=== PATIENT | male | born 1965 | race Caucasian/White ===

== ENCOUNTER → 2020-12-22 | Outpatient (CLI) | payer BC ==
[~2020-12-22] MED LIST: ALPR0.5T6 PO; BUSP15TA PO; GABA800T5 PO
== END ==
LOC: LAB 07:50
PROVIDERS: ATTEND Nurse Anesthetist, Certified Registered
DX: Z01.812 Encounter for preprocedural laboratory examination (principal); Z86.010 Personal history of colon polyps; Z20.822 Contact with and (suspected) exposure to COVID-19
CPT/HCPCS: U0003; U0005

== ENCOUNTER → 2020-12-26 | Day surgery (SDC) | payer BC ==
[~2020-12-26] MED LIST changes: +IPRATRPIUM/ALBUTEROL 0.5/2.5MG 3 ML NEBU. NEB PRN; +LIDOCAINE 2% PF 5 ML VIAL. ONE; +MIDAZOLAM HCL PF 2 MG/2 ML VIAL. IV ONE; +ONDANSETRON PF 4 MG/2 ML VIAL. IV PRN; +PROPOFOL 10,000 MCG/ML (20ML) VIAL IV ONE
[2020-12-26] MEDS: IV RINGERS SOLUTION,LACTATED 1,000 ML IV SCH (08:28)
[2020-12-26 10:04] VITALS: BP 107/74
--- NOTE | 2020-12-28 15:10 | PATHOLOGY ---
[facility] Accession Number: [id number] . 01 Material submitted: . hepatic flexure - HEPATIC FLEXURE POLYP X2. Modifiers: X2 . 01 Clinical history: . SCREENING,HISTORY OF POLYPS COLONOSCOPY . 02 Diagnosis: Colon biopsies, hepatic flexure polyp x2: - Tubular adenomas. (JPM:brinda; 12/28/2020) S 12/28/2020 0933 Local . 02 Comment: There is no high grade dysplasia or evidence of malignancy. (JPM:brinda; 12/28/2020) . 02 Electronically signed: . Anthony Ann MD, Pathologist NPI- [id number] . 01 Gross description: . The specimen is received in formalin, labeled "Joe Bills, hepatic flexure polyp x2". Received are four segments of pale avila tissue ranging in size from 0.2-0.3 cm in maximum dimensions. The specimen is submitted entirely in cassette A1. ([facility]; 12/27/2020) QA/QA 12/27/2020 1619 Local . 02 Pathologist provided ICD-10: D12.3 . 02 CPT . 298153 Specimen Comment: A courtesy copy of this report has been sent to [phone] Specimen Comment: Report sent to / DR GRIFFITHS Performed at: 01 [facility] [address] [facility] [facility] [address], [place] [id number] MD Cole Biggs MD Phone: [phone] Performed at: 02 [facility] [address] [place], [place] [id number] MD Anthony Ann MD Phone: [phone]
== END | disposition home or self-care (01) ==
LOC: SURG 08:10
PROVIDERS: ATTEND Internal Medicine Gastroenterology
DX: Z12.11 Encounter for screening for malignant neoplasm of colon (principal); D12.3 Benign neoplasm of transverse colon; K64.8 Other hemorrhoids; K57.30 Diverticulosis of large intestine without perforation or abscess without bleeding; G47.33 Obstructive sleep apnea (adult) (pediatric); Z72.89 Other problems related to lifestyle; Z86.010 Personal history of colon polyps; Z79.899 Other long term (current) drug therapy
CPT/HCPCS: 45380; 88305; J2001; J2704; J7120